=== PATIENT | female | born 1990 | race Two or more races ===

== ENCOUNTER 2025-02-20 09:21 | Inpatient (IN) | payer MEDICAID, SELFPAY ==
[2025-02-20] VITALS (48 sets, daily range): BP systolic 115–181; BP diastolic 62–110; PULSE 52–115; RESP 16–99; TEMP 36.6–37.8; O2SAT 79–99; BMI 25.4
[2025-02-20] MEDS: RINGERS LACTATED 1000 ML 1,000 ML 100 ML IV ×2 (09:55→15:22)
[2025-02-20 10:12] LABS: Collection Type, Urine Clean Catch
[2025-02-20 10:14] LABS: Basophils # (Auto) 0.0 Thou/mm3 (0.0-0.2); Basophils % (Auto) 0 % (0-2.5); Eosinophils # (Auto) 0.0 Thou/mm3 (0.0-0.5); Eosinophils % (Auto) 1 % (0-10); Hematocrit 37.7 % (36.0-46.0); Hemoglobin 12.8 g/dL (12.0-16.0); Immature Granulocytes Auto 0.01 Thou/mm3 (0.00-0.00); Lymphocytes # (Auto) 2.1 Thou/mm3 (1.0-4.8); Lymphocytes % (Auto) 41 % (10-50); Mean Corpuscular HGB Conc 34.0 g/dl (31.0-37.0); Mean Corpuscular Hemoglobin 28.8 pg (25.0-35.0); Mean Corpuscular Volume 85 fL (80-100); Monocytes # (Auto) 0.5 Thou/mm3 (0.0-0.8); Monocytes % (Auto) 11 % (0-12); Neutrophils # (Auto) 2.4 Thou/mm3 (1.8-7.7); Neutrophils % (Auto) 47 % (37-80); Nucleated Red Blood Cell # 0.00 Thou/mm3 (0.00-0.00); Nucleated Red Blood Cell % 0 /100 WBC (0); Platelet Count 192 Thou/mm3 (140-440); RDW Standard Deviation 41.4 fL (36.4-46.3); Red Blood Count 4.45 Miln/mm3 (4.00-5.20); White Blood Count 5.0 Thou/mm3 (3.6-11.0)
[2025-02-20 10:33] LABS: Alanine Aminotransferase 47 U/L (10-49); Albumin, Serum 3.7 gm/dL (3.5-5.0); Albumin/Globulin Ratio 1.5 (1.2-2.2); Alkaline Phosphatase 465 U/L (46-116); Anion Gap 10 (7-16); Aspartate Amino Transferase 34 U/L (0-34); BUN/Creatinine Ratio 10 Ratio (12-20); Bilirubin,Total 1.2 mg/dL (0.3-1.2); Blood Urea Nitrogen 7 mg/dL (9-23); Calcium 9.0 mg/dL (8.3-10.6); Calcium (Corrected) 9.2 mg/dL (8.5-10.1); Carbon Dioxide 21.9 mMol/L (20.0-31.0); Chloride 107 mMol/L (98-107); Creatinine (Component) 0.7 mg/dL (0.6-1.3); Estimated Creatinine Clearance 113.4 mL/min (>60); Globulin 2.5 gm/dL (2.3-3.5); Glucose 98 mg/dL (74-106); Osmolality,Calculated 275 (275-295); Potassium 3.9 mMol/L (3.4-5.1); Sodium 139 mMol/L (136-145); Total Protein 6.2 gm/dL (5.7-8.2); Uric Acid 4.2 mg/dL (3.1-7.8); eGFR > 60 See Note
[2025-02-20 10:39] LABS: Bacteria,Urine Rare; Bilirubin,Urine 1+ (Negative); Blood,Urine 3+ (Negative); Clarity,Urine Turbid (Clear/Hazy); Color,Urine Drk-Yellow (Lt Yel-Yel); Glucose, Urine Negative (Negative); Ketones,Urine Negative (Negative); Leukocyte Esterase,Urine Positive (Negative); Nitrite,Urine Negative (Negative); PH,Urine 6.5 (5.0-7.0); Protein,Urine 1+ (Neg - Trace); RBC,Urine 105 /hpf (0-3); Specific Gravity,Urine 1.017 (1.001-1.035); Squamous Epithelial Cell,Urine 19 /hpf (0-5); Urobilinogen,Urine 8.0 mg/dL (0.0-1.0); WBC,Urine 23 /hpf (0-5)
[2025-02-20 10:51] LABS: Syphilis Nonreactive (Nonreactive)
--- NOTE | 2025-02-20 10:54 | PD.LDHP ---
Documentation for date of: 02/20/25 OB Labor/Induct. HPI History of Present Illness Chief complaint: leaking : 4 Para: 2 Term pregnancies: 2 pregnancies: 0 Living children: 2 History of Abortions: Spontaneous and Elective: 1 History of Vaginal deliveries: 2 History of sections: No History of : No Date of last menstrual period: 05/23/24 PRASHANTH: 02/27/25 Gestational Age (weeks): 39 Gestational Age (days): 0 Gestational age based on last menstrual period: 39 History of Present Dating criteria: LMP confirmed by 2nd trimester US Adequate Care: Yes Obstetrical complications: none Labs Labs: Positive: Rubella Titre, Negative: RPR, Hepatitis B, HIV, Chlamydia, Gonorrhea and Group Beta Strep and Unknown: Herpes Type 1, Herpes Type 2 and Covid-19 Review of Systems Review of Systems Systems Reviewed: All systems reviewed, normal except as documented Past Medical History Surgical History SURGICAL: Negative Section Meds Home Medications and Allergies Home Medications ?Medication ?Instructions ?Recorded ?Confirmed ?Type vit 122-ferrous fumarate 500 cap PO DAILY 10/08/18 10/09/18 History 27 mg iron-folic acid 800 mcg tablet ( Multi) ursodiol 300 mg capsule 300 cap PO TID 10/09/18 10/09/18 History Allergies Allergy/AdvReac Type Severity Reaction Status Date / Time No Known Allergies Allergy Unknown Unverified 11/18/14 21:20 OB Exam Physical Exam Vital signs: Temp Pulse Resp BP Pulse Ox 98.6 F 61 18 134/83 H 97 02/20/25 09:28 02/20/25 10:12 02/20/25 09:28 02/20/25 10:12 02/20/25 09:43 Narrative: S=D , vertex EFW is 6.0 lbs patient came with SROM . 2 cm dilation and spontaneous irregular contrtactions Constitutional Constitutional: no acute distress Routine Respiratory Exam Respiratory: Present CTA bilaterally Routine Cardiovascular Exam Cardiovascular: Present RRR Detailed Labor and Delivery Exam Dilation (cm): 2cm Effacement (%): 50% station: -2 Consistency: soft Presentation: Vertex Membranes: ruptured Amniotic fluid: thin meconium Baseline heart rate: 145 monitor accelerations: 15x15 monitor decelerations: None rodent exterminator variability: Minimal (3-5) Tachysystole: No Contraction intensity: Mild Comments: FHRate variability improved after Iv fluids Routine Extremities Exam Extremities: Present full ROM and pulses intact Comments: No calf tenderness Routine Psychiatric Exam Psychiatric: Present normal thought process and cooperative OB Results Labs 02/20/25 09:57 02/20/25 09:57 Labs: Short CBC 02/20/25 Range/Units 09:57 WBC 5.0 (3.6-11.0) Thou/mm3 Hgb 12.8 (12.0-16.0) g/dL Hct 37.7 (36.0-46.0) % Plt Count 192 (140-440) Thou/mm3 BMP 02/20/25 09:57 Sodium 139 Potassium 3.9 Chloride 107 Carbon Dioxide 21.9 BUN 7 L Creatinine 0.7 Glucose 98 Calcium 9.0 Liver Function 02/20/25 Range/Units 09:57 Total Bilirubin 1.2 (0.3-1.2) mg/dL AST 34 (0-34) U/L ALT 47 (10-49) U/L Alkaline Phosphatase 465 H (46-116) U/L Albumin 3.7 (3.5-5.0) gm/dL Urine 02/20/25 Range/Units 09:57 Urine Color Drk-Yellow A (Lt Yel-Yel) Urine Clarity Turbid A (Clear/Hazy) Urine pH 6.5 (5.0-7.0) Ur Specific [place] 1.017 (1.001-1.035) Urine Protein 1+ A (Neg - Trace) Urine Glucose (UA) Negative (Negative) Impressions Impression: in labor /SROM/ On ursodiol for itching but does not have cholestasis of OB Assessment & Plan Additional Plan Induction method: per misoprostol protocol Plan: augmentation and anticipate NVD Additional Plan Comment: 34 years old at 39 weeks , GBS negative with SROM, no medical issues , has had 5 to 6 Lb babies , PNC adequate at [facility] , Plan cytotec, anticipate
[2025-02-20 10:59] LABS: Fibrinogen 538 mg/dL (175-375); INR 0.9 (0.9-1.3); Partial Thromboplastin Time 28.8 Seconds (22.0-36.0); Prothrombin Time 10.1 Seconds (9.0-12.2)
[2025-02-20] MEDS: AMOXICILLIN SUSP 250 MG/5 ML 875 MG PO (10:59)
[2025-02-20] MEDS: OXYTOCIN in NS 20 units 20 UNIT/1,000 ML BAG 125 UNIT IV (16:06)
[2025-02-20] MEDS: IBUPROFEN TAB 400 MG TABLET 800 MG PO (16:18)
--- NOTE | 2025-02-20 16:51 | PD.LDDELS ---
Data ([place]) Data Hx Section: No : 4 Term: 2 : 0 Livin Abortions: Spontaneous & Theraputic: 1 Delivery Data ([place]) Labor Data Initiation of labor: Augmentation Induction/Augmentation Agent: Cytotec-PO ROM date: 02/20/25 ROM time: 06:00 Amniotic membrane rupture type: Spontaneous Amniotic fluid description: Light Meconium Delivery Data Onset of labor date: 02/20/25 Onset of labor time: 06:00 Complete dilation date: 02/20/25 Complete dilation time: 15:58 delivery date: 02/20/25 [place] delivery time: 16:04 Placenta delivery date: 02/20/25 Placenta delivery time: 16:09 Stage 1 total time: Labor - Stage 1 Duration 9 hours and 58 minutes Delivered by: lencho Delivery nurse: veronique Maciel nurse: diana mccullough Thermostat Machine Tender at delivery: No Support person(s) at delivery: FOB Other staff at delivery: M. T pipe fitter apprentice Method Delivery method: Normal Vaginal Delivery Presentation: Vertex Anesthesia Type Anesthesia Type: None Placenta Placenta delivery description: Spontaneous Cord blood sent to lab: Yes cord blood collection: Cord Blood Type Episiotomy Episiotomy description: None Umbilical Cord cord description: 3 Vessels Complications Complications: none Data ([place]) Data order: 1 's gender: Female weight (gms): 2810 g Weight (pounds): 6 lbs and 3.1 ozs [place] length: 49.53 cm 1 minute: 9 5 minutes: 9 Additional Comments Additional comments: Post elevated BP
[2025-02-20] MEDS: AMOXICILLIN 875 MG TABLET PO (20:10)
[2025-02-20] MEDS: LABETALOL 100 MG TABLET PO (20:11)
[2025-02-20] MEDS: ACETAMINOPHEN 325 MG TABLET 650 MG PO (20:12)
[2025-02-21] VITALS (8 sets, daily range): BP systolic 120–147; BP diastolic 75–99; PULSE 52–62; RESP 16–18; TEMP 36.6–37; O2SAT 96–97
[2025-02-21 06:27] LABS: Basophils # (Auto) 0.0 Thou/mm3 (0.0-0.2); Basophils % (Auto) 0 % (0-2.5); Eosinophils # (Auto) 0.0 Thou/mm3 (0.0-0.5); Eosinophils % (Auto) 0 % (0-10); Hematocrit 35.9 % (36.0-46.0); Hemoglobin 12.4 g/dL (12.0-16.0); Immature Granulocytes Auto 0.02 Thou/mm3 (0.00-0.00); Lymphocytes # (Auto) 2.3 Thou/mm3 (1.0-4.8); Lymphocytes % (Auto) 32 % (10-50); Mean Corpuscular HGB Conc 34.5 g/dl (31.0-37.0); Mean Corpuscular Hemoglobin 29.2 pg (25.0-35.0); Mean Corpuscular Volume 85 fL (80-100); Monocytes # (Auto) 0.7 Thou/mm3 (0.0-0.8); Monocytes % (Auto) 10 % (0-12); Neutrophils # (Auto) 4.2 Thou/mm3 (1.8-7.7); Neutrophils % (Auto) 57 % (37-80); Nucleated Red Blood Cell # 0.00 Thou/mm3 (0.00-0.00); Nucleated Red Blood Cell % 0 /100 WBC (0); Platelet Count 194 Thou/mm3 (140-440); RDW Standard Deviation 41.2 fL (36.4-46.3); Red Blood Count 4.24 Miln/mm3 (4.00-5.20); White Blood Count 7.3 Thou/mm3 (3.6-11.0)
[2025-02-21] MEDS: AMOXICILLIN 875 MG TABLET PO ×2 (09:11→20:26)
--- NOTE | 2025-02-21 12:39 | ESDS_ITS ---
DS: Providers Provider Date of admission: 02/20/25 09:52 Primary care physician: Physician No Primary/Family Admitting Provider: Justina Velázquez MD Attending Provider on Admission: Justina Velázquez MD Attending Provider on DC: Justina Velázquez MD Discharging Provider: Justina Velázquez MD DS: Diagnosis Discharge Diagnosis (1) Vaginal delivery: Status: Acute Assessment & Plan: doing well (2) Gestational HTN: Status: Acute Assessment & Plan: resolved at discharge had elevated BP will need follow up in 1 week for BP check Problem List Completed Was Problem List Reviewed/Reconciled?: Yes Summary/Hosp Course Brief History: 34 years old came in labor and had a , post elevated BP, resolved now Peripartum Data Delivery Method: Normal Vaginal Delivery Episiotomy Description: None Status at Discharge Cognitive/behavioral status at discharge: normal Functional status at discharge: independent ambulation Overall status at discharge: patient is progressing back to baseline Time Spent with Patient Time attestation: Total time spent providing and/or coordinating discharge services: Exam Vital Signs Temp Pulse Resp BP Pulse Ox O2 Del Method 98.4 F 53 L 16 120/75 97 Room Air 02/21/25 12:01 02/21/25 12:01 02/21/25 12:01 02/21/25 12:01 02/21/25 12:02/21/25 12:01 Narrative Exam doing well but will continue to watch her BP and hopefully discharge if no concerns later today alertx 3 no chest pain or SOB CHest clear CVR bradycardia at 50 to 60 HRate uterus firm Non tender and lochia mild Voiding and passing flatus taking care of the baby Routine Neurological Exam Neurological: Present alert, oriented X3, normal reflexes, vision grossly intact, hearing grossly intact and normal speech Routine Psychiatric Exam Psychiatric: Present normal affect, normal thought process, cooperative and good insight Discharge Plan Plan Patient Disposition: HOME (Self Care) Patient condition on transfer: Stable Health Concerns: will hold discharge till am / continue to watch Hrate and BP Prescriptions/Referrals Prescriptions/Med Rec: No Action ursodiol 300 mg Capsule 300 cap PO TID Multi 27-800 mg-mcg Tablet 500 cap PO DAILY Referrals: No Primary/Family,Physician [Primary Care Provider] - Patient/Caregiver Discharge Instructions Print Language: Portuguese Stand Alone Forms: Milana Award Info., Patient Portal Info Letter Planned Discharge Date 02/21/25
[2025-02-21] MEDS: LABETALOL 100 MG TABLET PO (20:27)
[2025-02-22] VITALS (8 sets, daily range): BP systolic 116–164; BP diastolic 68–88; PULSE 43–68; RESP 16–18; TEMP 36.3–36.8; O2SAT 97–98
--- NOTE | 2025-02-22 03:45 | PC.NURSE ---
Notify MD Velázquez of pt's BP 164/86 with a heart rate of 43. Pt is not complaining of any pain, no headache. MD Velázquez ordered EKG, and TSH, and one time P.O Hydralazine 10mg.
--- NOTE | 2025-02-22 03:49 | EKG_ITS ---
[facility] Test Date: 2025-02-22 Pat Name: PONCHO CANSECO [facility] Gender[facility] Overnight Cashier: NETTE : 1990 Requested By: Justina Velázquez Order Number: [id number] Reading MD: Justina Velázquez Measurements Intervals [place] Rate: 46 P: 66 ME: 143 QRS: 37 QRSD: 89 T: 49 QT: 466 QTc: 412 Interpretive Statements SINUS BRADYCARDIA MODERATE T-WAVE ABNORMALITY, CONSIDER ANTERIOR ISCHEMIA No previous ECG available for comparison /store/S0/[id number]
--- NOTE | 2025-02-22 04:24 | PC.NURSE ---
Inform MD Velázquez of the EKG result. No new orders received.
[2025-02-22 08:17] LABS: Thyroid Stimulating Hormone 3.46 uIU/mL (0.55-4.78)
[2025-02-22] MEDS: AMOXICILLIN 875 MG TABLET PO (08:27)
[2025-02-22] MEDS: DIPHTH,PERTUSS(ACELL),TET VAC 0.5 ML SYR- ADULT IMi (15:42)
--- NOTE | 2025-02-22 18:52 | PD.LDDS ---
DS: Providers Provider Date of admission: 02/20/25 09:52 Primary care physician: Physician No Primary/Family Admitting Provider: Justina Velázquez MD Attending Provider on Admission: Justina Velázquez MD Attending Provider on DC: Makenzie Gallagher MD ([facility]) Discharging Provider: Makenzie Gallagher MD ([facility]) Anticipated date of discharge: 02/22/25 DS: Diagnosis Discharge Diagnosis (1) care following vaginal delivery: Status: Acute Assessment & Plan: Patient is doing well. Discharge home day #2 in stable condition. She was monitored all day and did not have any significant elevated blood pressures. Her pulse ranged from a low of about 56 to a high of in the low 70s. Patient was asymptomatic. She has an appoint with Dr. Cummings in 2 days. She will follow-up with blood pressure checks and other vital signs as needed. Problem List Completed Was Problem List Reviewed/Reconciled?: Yes Summary/Hosp Course Brief History: 34 years old came in labor and had a , post elevated BP, resolved now . Please see admission H&P for further details. Hospital course: Patient was admitted and induced. She went on to deliver vaginally. Please see delivery note by Dr. Velázquez for further information. She delivered 02/20/2025 at approximately 1604. Her course was complicated by some low pulses and elevated blood pressures. Patient was originally treated with labetalol 100 twice daily and hydralazine by Dr. Velázquez. On day #2 her blood pressures did stabilize and I discontinued the medication. Her pulse was stable in the low of 59 with a high of about 70. Patient remained asymptomatic. She was ambulating, tolerating a general diet, and voiding. She was not dizzy or lightheaded. Patient desired to be discharged home and was discharged home day #2 in stable condition. Peripartum Data Delivery Method: Normal Vaginal Delivery Episiotomy Description: None Laceration Description: see Delivery Summary complications: none Status at Discharge Cognitive/behavioral status at discharge: Patient is alert and oriented x 3 in no apparent distress Functional status at discharge: independent ambulation Overall status at discharge: patient is progressing back to baseline Time Spent with Patient Time attestation: Total time spent providing and/or coordinating discharge services: Time spent: Less than 30 minutes Specific discharge activities: Pelvic rest x 6 weeks, follow-up with Dr. Cummings later this week for a blood pressure and vital sign check. Exam Vital Signs Temp Pulse Resp BP Pulse Ox O2 Del Method 98.2 F 59 L 18 131/82 H 97 Room Air 02/22/25 16:10 02/22/25 16:10 02/22/25 16:10 02/22/25 16:10 02/22/25 16:10 02/22/25 16:10 Narrative Exam Fundus is firm nontender extremities show no significant edema or erythema Discharge Plan Plan Patient Disposition: HOME (Self Care) Disposition Comment: Stable Patient condition on transfer: Stable Prescriptions/Referrals Prescriptions/Med Rec: New acetaminophen 325 mg Tablet 650 mg PO Q4H PRN (Reason: See Comments) Qty: 60 0RF ibuprofen 400 mg Tablet 800 mg PO Q8H PRN (Reason: See Comments) Qty: 60 0RF Continued Multi 27-800 mg-mcg Tablet 500 cap PO DAILY Discontinued ursodiol 300 mg Capsule 300 cap PO TID Referrals: No Primary/Family,Physician [Primary Care Provider] - Patient/Caregiver Discharge Instructions Discharge Activity: activity as tolerated Other Discharge Activity Instructions:: Pelvic rest x 6 weeks Other Discharge Diet Instructions: General Diet as tolerated Education Materials: After a Vaginal , Breast Care After , Feel Healthy After Print Language: Portuguese Stand Alone Forms: Milana Award Info., Patient Portal Info Letter Discharge Order Discharge Orders: Discharge (Routine); Ordered 02/22/25 Ordered By: Makenzie Gallagher ([facility]) Planned Discharge Date 02/22/25
== END 2025-02-22 19:55 | disposition home or self-care (01) | DRG 560 ==
LOC: S4SX 09:25 → S4NX 02-21 16:09 → S4SX 02-22 06:12
PROVIDERS: Admitting Provider Obstetrics & Gynecology; Visit Provider Obstetrics & Gynecology
DX: O13.4 Gestational [pregnancy-induced] hypertension without significant proteinuria, complicating childbirth (principal); O77.0 Labor and delivery complicated by meconium in amniotic fluid; Z3A.39 39 weeks gestation of pregnancy; Z37.0 Single live birth; Z23 Encounter for immunization
CPT/HCPCS: 36415; 80053; 81001; 82570; 84112; 84156; 84443; 84550; 85025; 85384; 85610; 85730; 86780; 86850; 86900; 86901; 90715; 93005; J2590; J2795; J3010; J7120; S0191; A9270

== ENCOUNTER 2025-06-02 08:22 | Outpatient (AMB) | payer MEDICAID, SELFPAY ==
--- NOTE | 2025-06-02 08:47 | AMB.GYNCLNOT ---
Vital Signs 06/02/25 08:48 Height 1.65 m Height Method Stated Weight 65.034 kg Weight Measurement Method Standing Scale BMI 23.8 BP 121/81 Blood Pressure Source Automatic Cuff Blood Pressure Location Right Upper Arm Position Sitting Respiration 18 Pulse 52 L Pulse Source Monitor Temp 97.8 F Temp Source Temporal Artery Scan Pulse Oximetry (%) 98 Oxygen Delivery Method Room Air Allergies/Home Meds Allergies & Medications Allergies No Known Allergies Allergy (Unknown, Verified 06/02/25 08:49) Medication Reconciliation vit 122-ferrous fumarate 27 mg iron-folic acid 800 mcg tablet ( Multi) 500 cap PO DAILY 10/08/18 [History Confirmed 06/02/25] acetaminophen 325 mg tablet 650 mg (2 x 325 mg) PO Q4H PRN See Comments #60 tabs 02/22/25 [Rx Confirmed 06/02/25] ibuprofen 400 mg tablet 800 mg (2 x 400 mg) PO Q8H PRN See Comments #60 tabs 02/22/25 [Rx Confirmed 06/02/25] Intake Visit Data Collection New Patient or Established: Established Patient (seen at [facility] within 3 years) Reason for Visit:: REFERRAL STERILIZATION Seen by Clinical Staff ONLY (RN/MA): No Senior Care Assistant Required: Yes Senior Care Assistant's name/title: DANIEL STEELE MA Do You Feel Safe at Home: Yes Authorities Contacted: N/A PCP or OBGYN visit in last 3 months: No Hx Now: No Are you currently on any form of Control: No Last menstrual period: 05/11/25 Pain Present Currently: No Pain Scale Used: [place]/Numerical Pain scale:: 0 Smoking Status Smoking Status: Never smoker Immunizations Flu Vaccine in the Last 12 Months: No Flu Vaccine Exclusion Criteria: No Exclusion Criteria Binding Folder Machine history Binding Folder Machine History Menstrual regularity: regular Flow: normal Monthly: Yes How many days does period last: 6 Age at menarche: 13 Currently sexually active: Yes CHIEF OF ANESTHESIOLOGY: Past Medical History Past Medical History: No Hx Neurological Disorders, No Hx Breast Cancer, No Hx Cardiac Disorders, No Hx Cancer, No Hx Blood Disorders, No Hx Gastrointestinal Disorders, No Hx Renal Disease, No Hx Diabetes Mellitus Type 1 and No Hx Diabetes Mellitus Type 2 Questionnaires Covid-19 Vaccine Questionnaire Has patient been vacinated for Covid-19 Have you been vacinated for Covid-19: No PHQ-9 PHQ-2 Over the last 2 weeks, how often have you been bothered by any of the following problems? 1. Little interest or pleasure in doing things: not at all 2. Feeling down, depressed, or hopeless: not at all Total score: 0 PHQ-9 3. Trouble falling or staying asleep, or sleeping too much: Not at all 4. Feeling tired or having little energy: Not at all 5. Poor appetite or overeating: Not at all 6. Feeling bad about yourself - or that you are a failure or have let yourself or your family down: Not at all 7. Trouble concentrating on things, such as reading the newspaper or watching television: Not at all 8. Moving or speaking so slowly that other people could have noticed? - Or the opposite - being so fidgety or restless that you have been moving around a lot more than usual: not at all 9. Thoughts that you would be better off or of hurting yourself in some way: Not at all Total score: 0 If you checked off any problems, how difficult have these problems made it for you to do your work, take care of things at home, or get along with other people?: not difficult at all Source: Developed by Drs. Lewis Shelley, Marcie Biswas, Tahir Welch and colleagues, with an educational radha from [employer]. Depression screen completed yes Social History Living Situation History Marital Status: Lives With: Family Housing: House Tobacco History Smoking Status: Never smoker Second Hand Smoke Exposure: No Alcohol History Alcohol Intake: Never Domestic Abuse History Do You Feel Safe at Home: Yes History of Present Illness HPI Narrative Irene Gonzalez presents for consultation regarding permanent sterilization via bilateral tubal ligation. The patient is seeking this elective surgical procedure for contraceptive purposes. She has no history of sections or other abdominal surgeries, which should make the planned laparoscopic approach straightforward. No specific symptoms, complaints, or changes in health status were discussed during this consultation visit. Patient was asked about physical activity at the end of the visit. ROS: Negative except as stated above, limited to CHIEF OF ANESTHESIOLOGY and pertinent complaints. Exam General General Appearance: alert, in no apparent distress and healthy appearing Head Head exam: atraumatic Neck Neck exam: Present normal inspection and trachea midline Chest Chest inspection: Present normal inspection and symmetric chest wall rise External exam: Present normal external exam; Absent tenderness Neuro Neurological exam: Present oriented X3 Psych Psychiatric exam: Present normal affect and normal mood Office Procedures [facility] LOC & Office Proc's Nursing/Assessment Patient Status: Established Patient [facility] Nursing Assessment: Medication Reconciliation, Update PMH in EMR and Vital Signs OB Clinic Coordination of Care: Complex Care and Chronic Disease 1-5, Education Complex Pt/Fam, Consent,records obtained, informed consent, Lab and Imaging orders, Results/Orders obtained and Staff clarify orders Established Patient Charge Established Patient Point Assignment: 110 Established Patient Point Charge: EP Level 3 (80-115) Assessment & Plan Diagnosis / Problem List (1) Encounter for sterilization: Status: Acute Plan Desire for permanent sterilization: - Patient requests bilateral tubal ligation for permanent contraception. - No history of prior sections or abdominal surgeries, which should allow for straightforward laparoscopic approach. Plan: - Laparoscopic bilateral tubal ligation planned: ? Procedure involves camera insertion and 2 small lateral incisions ? Complete cutting and cauterization of fallopian tubes ? Outpatient procedure with same-day discharge ? Recovery time 48-72 hours before return to work - Informed consent obtained regarding permanent, irreversible nature of procedure. - Consent forms to be signed with mandatory 30-day waiting period. - Insurance authorization to be obtained during waiting period. - Pre-operative visit scheduled before surgery.
[2025-06-02 08:48] VITALS: BP 121/81; PULSE 52; RESP 18; TEMP 36.6; O2SAT 98; BMI 23.8
== END 2025-06-02 09:11 | disposition home or self-care (01) ==
LOC: HODSOBC 08:22
PROVIDERS: Supervising Provider Obstetrics & Gynecology; Visit Provider Obstetrics & Gynecology
DX: Z30.2 Encounter for sterilization (principal)
CPT/HCPCS: 99213; G0463